=== PATIENT | male | born 1980 | race Caucasian/White ===

== ENCOUNTER 2019-04-25 18:40 | Emergency (ER) | payer MEDICAID, OTHER ==
[2019-04-25 19:03] VITALS: BP 121/77
--- NOTE | 2019-04-25 19:21 | UC ---
General HPI - HPI Summary HPI Summary: pt dropped a zero turn mower onto his L thigh and down to the knee 2 weeks ago. at the time, the thigh and knee were very painful. pain made it difficult to walk and move those areas. the pain is gone; however, he is c/o a big "squishy" area above the knee. he denies limited ROM. knee sometimes gives out. - History of Current Complaint Chief Complaint: UCLowerExtremity Stated Complaint: LEFT LEG COMPLAINT Time Seen by Provider: 04/25/19 18:59 Pain Intensity: 0 - Allergy/Home Medications Allergies/Adverse Reactions: Allergies Allergy/AdvReac Type Severity Reaction Status Date / Time No Known Allergies Allergy Verified 04/25/19 19:03 Home Medications: Home Medications Haloperidol TAB* [Haldol TAB*] 1 tab PO DAILY 04/25/19 [History Confirmed ] Levothyroxine TAB* [Synthroid 150 MCG TAB*] 1 tab PO DAILY 04/25/19 [History Confirmed 04/25/19] Meloxicam [Mobic] 1 tab PO DAILY 04/25/19 [History Confirmed 04/25/19] Ranitidine TAB (NF) [Zantac TAB (NF)] 1 tab PO DAILY 04/25/19 [History Confirmed 04/25/19] lamoTRIgine [Lamotrigine] 1 tab PO DAILY 04/25/19 [History Confirmed 04/25/19] PMH/Surg Hx/FS Hx/Imm Hx Endocrine History: Thyroid Disease Psychological History: Bipolar Disorder - Surgical History Surgical History: Yes Surgery Procedure, Year, and Place: sinus surgery as a child. R knee ACL/MCL repair - Social History Occupation: Employed Full-time Alcohol Use: Occasionally Substance Use Type: None Smoking Status (MU): Heavy Every Day Tobacco Smoker Amount Used/How Often: 3/4 ppd Review of Systems All Other Systems Reviewed And Are Negative: No Constitutional: Negative: Fever, Chills Skin: Positive: Bruising - L distal thigh. Negative: Rash Musculoskeletal: Positive: Edema - L distal tigh/knee areas. Negative: Decreased ROM Neurological: Positive: Numbness - over squishy spot. Negative: Weakness Physical Exam Triage Information Reviewed: Yes Appearance: Well-Appearing Vital Signs: Initial Vital Signs Temp 98.8 F 04/25/19 18:58 Pulse 73 04/25/19 18:58 Resp 17 04/25/19 18:58 BP 121/77 04/25/19 18:58 Pulse Ox 97 04/25/19 18:58 Vital Signs Reviewed: Yes Cardiovascular: Positive: RRR Musculoskeletal: Positive: Other: - LLE: distal thigh has some brownish bruising. there is mild swelling in the suprapatellar and pre patellar areas. pt denies any tenderness with palpation of the leg. the knee has mild painless laxity over the MCL and LCL's. there is full active ROM throughout including knee extension/flexion against resistance. The rest of the leg is unremarkable. s/v is intact except for the swelling over the suprapatellar area where pt notes the skin feels numb to touch. Neurological: Positive: Alert Psychological: Positive: Age Appropriate Behavior Skin Exam: Normal Diagnostics - Radiology No standard instances Radiology Interpretation Completed By: ED Physician - knee/thigh=no fx's. knee and distal thigh =sts. Course/Dx - Differential Dx - Multi-Symptom Differential Diagnoses: Other - no concern for infection/fxor dislocation. Quadriceps is intact. exam c/w a prepatellar bursitis, acute vs chronic joint laxity and suprapatellar bursitis or hematoma/seroma. Quadriceps strain possible as well. will immobilize and refer to orthopedics. - Diagnoses Provider Diagnosis: Left knee sprain, Contusion, Bursitis Discharge - Sign-Out/Discharge Documenting (check all that apply): Patient Departure All imaging exams completed and their final reports reviewed: No - Discharge Plan Condition: Stable Disposition: HOME Patient Education Materials: Knee Bursitis (ED), Knee Sprain (ED), Knee Immobilizer (ED), Contusion in Adults (ED) Forms: *Work Release Referrals: Albaro Becker MD [Medical Doctor] - As Soon As Possible Additional Instructions: USE IMMOBILIZER UNTIL CLEARED. - Billing Disposition and Condition Condition: STABLE Disposition: Home
== END 2019-04-25 20:20 | disposition home or self-care (01) ==
LOC: UCCORT 18:40
DX: S83.92XA Sprain of unspecified site of left knee, initial encounter (principal); S70.12XA Contusion of left thigh, initial encounter; W31.89XA Contact with other specified machinery, initial encounter; Y92.9 Unspecified place or not applicable; M71.9 Bursopathy, unspecified; F17.210 Nicotine dependence, cigarettes, uncomplicated
CPT/HCPCS: 99202; G0463